=== PATIENT | male | born 1975 ===

== ENCOUNTER 2018-02-20 13:31 | Emergency (ER) | payer MEDICAID, SELFPAY ==
[2018-02-20 13:37] VITALS: BP 131/81; PULSE 97; RESP 16; TEMP 99.6; O2SAT 98
[2018-02-20] MEDS ORDERED: Tdap Vaccine 0.5 ml Vial (10-64 yrs) IM ONE (13:41)
[2018-02-20] MEDS ORDERED: Lidocaine 1% Inj (20ml) IJ ONE (13:41)
[2018-02-20] MEDS ORDERED: Lidocaine 1% MPF (30 ml) Inj ONE (13:51)
[2018-02-20] MEDS ORDERED: Povidone Iodine Topical 10% Sol ONE (13:51)
--- NOTE | 2018-02-20 13:52 | ED PDOC ---
Upper Extremity Pain/Injury Time Seen by Provider: 02/20/18 13:37 Chief Complaint (Nursing): Abnormal Skin Integrity Chief Complaint (Provider): Laceration to right hand History Per: Patient History/Exam Limitations: no limitations Onset/Duration Of Symptoms: Hrs (earlier today) Current Symptoms Are (Timing): Still Present Additional Complaint(s): 42 year old male presents to the ED complaining of accidentally cutting his right hand with a knife earlier today at home. Patient denies numbness and tingling. He offers no other complaints at this time, and arrived with the bleeding under control. Tetanus not up to date. PMD: none provided Past Medical History Reviewed: Historical Data, Nursing Documentation, Vital Signs Vital Signs: Last Vital Signs Temp 99.6 F 02/20/18 13:34 Pulse 97 H 02/20/18 13:34 Resp 16 02/20/18 13:34 BP 131/81 02/20/18 13:34 Pulse Ox 98 02/20/18 13:34 - Medical History PMH: No Chronic Diseases - Surgical History Surgical History: No Surg Hx - Family History Family History: States: Unknown Family Hx - Social History Alcohol: None Drugs: Denies - Immunization History Hx Tetanus Toxoid Vaccination: No - Allergies Allergies/Adverse Reactions: Allergies Allergy/AdvReac Type Severity Reaction Status Date / Time No Known Allergies Allergy Verified 02/20/18 13:34 Review of Systems ROS Statement: Except As Marked, All Systems Reviewed And Found Negative Skin: Positive for: Other (laceration on right hand) Neurological: Negative for: Numbness (or tingling) Physical Exam - Reviewed Nursing Documentation Reviewed: Yes Vital Signs Reviewed: Yes - Physical Exam Appears: Positive for: No Acute Distress Head Exam: Positive for: ATRAUMATIC, NORMOCEPHALIC Skin: Positive for: Normal Color, Warm, Dry Pulses-Radial (L): 2+ Pulses-Radial (R): 2+ Extremity: Positive for: Normal ROM (of dorsal right hand), Capillary Refill ( less than 2 seconds), Other (2cm c-shaped flap laceration on first mcp of right hand; no active bleeding) Neurologic/Psych: Positive for: Alert, Oriented (x3). Negative for: Motor/ Sensory Deficits - ECG O2 Sat by Pulse Oximetry: 98 (RA) Pulse Ox Interpretation: Normal Medical Decision Making Medical Decision Making: Initial Impression: hand laceration s/p knife injury Time: 13:41 Initial Plan: --Tetanus 0.5ml IM --Lidocaine 1% 3ml IJ Scribe Attestation: Documented by Miriam Moore, acting as a scribe for Rolf Matos PA-C. Provider Scribe Attestation: All medical entries made by the Scribe were at my direction and personally dictated by me. I have reviewed the chart and agree that the record accurately reflects my personal performance of the history, physical exam, medical decision making, and the department course for this patient. I have also personally directed, reviewed, and agree with the discharge instructions and disposition. Procedures - Laceration/Wound Repair Right Dorsal Hand Wound Length (cm): 2 Wound's Depth, Shape: flap (c-shaped) Wound Explored: clean Irrigated w/ Saline (ccs): 3 Anesthesia: 1% Lidocaine Wound Repaired With: Sutures Suture Size/Type: 5:0, proline Number of Sutures: 6 Wound Complexity: Simple Sterile Dressing Applied?: Yes Splint Applied?: No Sling Applied?: No Progress: Verbal consent was received prior to beginning. Patient tolerated procedure well. Patient told to follow up in 10 days for suture removal, or sooner if there are any complications. Disposition - Clinical Impression Clinical Impression: Hand laceration - Patient ED Disposition Is Patient to be Admitted: No - Disposition Referrals: [facility] [Outside] [facility] [Outside] Disposition: Routine/Home Disposition Time: 14:20 Condition: STABLE Additional Instructions: Suture removal in 10 days. Return to ED immediately if symptoms worsen. Instructions: Laceration Repair Forms: [employer] (Togolese) Print Language: JAPANESE
== END 2018-02-20 14:58 | disposition home or self-care (01) ==
LOC: H.ER 13:31
DX: S61.411A Laceration without foreign body of right hand, initial encounter (principal); W26.0XXA Contact with knife, initial encounter; Y92.000 Kitchen of unspecified non-institutional (private) residence as the place of occurrence of the external cause

== ENCOUNTER 2018-03-07 08:40 | Emergency (ER) | payer MEDICAID ==
[2018-03-07 08:47] VITALS: BP 131/73; PULSE 85; RESP 19; TEMP 99; O2SAT 96
--- NOTE | 2018-03-07 09:35 | ED PDOC ---
HPI: Wound Care - HPI Time Seen by Provider: 03/07/18 09:08 Chief Complaint (Nursing): Wound Check Chief Complaint (Provider): Wound Check History Per: Patient Exam Limitations: no limitations Current Symptoms Are (Timing): Better Additional Complaint(s): 42-year-old male presents to ED for suture removal of the right hand. Pt was here on February 20 for laceration of right hand. Sutures were placed. Denies any other complaints relating to hands. (-) pain, (-) fever, (-) swelling, (-) discharge, (-) difficulty moving fingers or using hand. Denies any other complaints at this time. PMD: No PMD. Past Medical History Reviewed: Historical Data, Nursing Documentation, Vital Signs Vital Signs: Last Vital Signs Temp 99.0 F 03/07/18 08:46 Pulse 85 03/07/18 08:46 Resp 19 03/07/18 08:46 BP 131/73 03/07/18 08:46 Pulse Ox 96 03/07/18 08:46 - Medical History PMH: No Chronic Diseases - Surgical History Surgical History: No Surg Hx - Family History Family History: States: Unknown Family Hx - Social History Alcohol: None Drugs: Denies - Immunization History Hx Tetanus Toxoid Vaccination: No - Home Medications Home Medications: Ambulatory Orders Medication Instructions Recorded No Known Home Med 03/07/18 - Allergies Allergies/Adverse Reactions: Allergies Allergy/AdvReac Type Severity Reaction Status Date / Time No Known Allergies Allergy Verified 03/07/18 08:59 Review of Systems ROS Statement: Except As Marked, All Systems Reviewed And Found Negative Constitutional: Negative for: Fever Musculoskeletal: Negative for: Hand Pain, Other (hand swelling, difficulty moving finers or using hand) Skin: Negative for: Other (discharge) Physical Exam - Reviewed Nursing Documentation Reviewed: Yes Vital Signs Reviewed: Yes - Physical Exam Appears: Positive for: No Acute Distress Extremity: Positive for: Normal ROM ((+) Full ROM of fingers), Other (Dorsum aspect of the right hand: (+) 7 cm healed laceration, (+) 7 sutures present, (+ ) Neurovascularly intact) Neurologic/Psych: Positive for: Alert, Oriented (x 3) - ECG O2 Sat by Pulse Oximetry: 96 (RA) Pulse Ox Interpretation: Normal Medical Decision Making Medical Decision Making: Time: 09:25 Suture Removal Procedure performed by ED Provider Dr. Aquino. 7 sutures nonabsorptive removed in acustomary fashion. Pt tolerated well. No complications Upon provider evaluation patient is medically stable, and requires no further treatment in the ED at this time. Patient will be discharged. Counseling was provided and all questions were answered regarding diagnosis. There is agreement to discharge plan. Return if symptoms persist or worsen. Scribe Attestation: Documented by Felipe Mcgovern, acting as a scribe for Lashonda Aquino MD. Provider Scribe Attestation: All medical record entries made by the Scribe were at my direction and personally dictated by me. I have reviewed the chart and agree that the record accurately reflects my personal performance of the history, physical exam, medical decision making, and the department course for this patient. I have also personally directed, reviewed, and agree with the discharge instructions and disposition. Disposition - Clinical Impression Clinical Impression: Encounter for removal of sutures - Patient ED Disposition Is Patient to be Admitted: No - Disposition Referrals: [facility] [Outside] Disposition: Routine/Home Disposition Time: 09:31 Condition: GOOD Additional Instructions: Follow up with your PCP as needed. Instructions: Stitches Removal Print Language: NEPALI
== END 2018-03-07 09:57 | disposition home or self-care (01) ==
LOC: H.ER 08:40
DX: Z48.02 Encounter for removal of sutures (principal)

== ENCOUNTER 2019-01-10 13:31 | Emergency (ER) | payer SELFPAY ==
[2019-01-10 13:35] VITALS: RESP 20; TEMP 98.4
--- NOTE | 2019-01-10 13:57 | ED PDOC ---
HPI: Psych/Substance Abuse Time Seen by Provider: 01/10/19 13:36 Chief Complaint (Nursing): Alcohol Ingestion Chief Complaint (Provider): Alcohol Ingestion History Per: Patient Additional Complaint(s): 43 y/o male brought in by EMS presents to the ED complaining of Intoxication. Patient was found outside a pizzeria with a steady gait. Patient admits he was drinking and appears intoxicated in the ER. Police presents no report of fall or trauma. Further injuries unattainable and no report of medical history at this time. Patient was admitted in 2018 for hand laceration repair. Past Medical History Reviewed: Historical Data, Nursing Documentation, Vital Signs, Unable To Obtain Vital Signs: Last Vital Signs Temp 98.4 F 01/10/19 13:32 Pulse 90 01/10/19 13:32 Resp 20 01/10/19 13:32 BP 123/92 H 01/10/19 13:32 Pulse Ox 98 01/10/19 13:32 Primary Care Provider: FAMILY PROVIDER,NO - Family History Family History: States: Unknown Family Hx - Immunization History Hx Tetanus Toxoid Vaccination: No - Home Medications Home Medications: Ambulatory Orders Medication Instructions Recorded No Known Home Med 03/07/18 - Allergies Allergies/Adverse Reactions: Allergies Allergy/AdvReac Type Severity Reaction Status Date / Time No Known Allergies Allergy Verified 01/10/19 13:32 Review of Systems ROS Statement: Except As Marked, All Systems Reviewed And Found Negative Physical Exam - Reviewed Nursing Documentation Reviewed: Yes Vital Signs Reviewed: Yes - Physical Exam Appears: Positive for: No Acute Distress. Negative for: Non-toxic (Alcohol on breath.) Head Exam: Positive for: ATRAUMATIC, NORMAL INSPECTION, NORMOCEPHALIC Skin: Positive for: Normal Color, Warm, Dry Eye Exam: Positive for: EOMI, Normal appearance, PERRL ENT: Positive for: Normal ENT Inspection Neck: Positive for: Normal, Painless ROM, Supple Cardiovascular/Chest: Positive for: Regular Rate, Rhythm. Negative for: Murmur Respiratory: Positive for: Normal Breath Sounds. Negative for: Wheezing Gastrointestinal/Abdominal: Positive for: Normal Exam, Soft. Negative for: Te nderness Back: Positive for: Normal Inspection. Negative for: L CVA Tenderness, R CVA Tenderness Extremity: Positive for: Normal ROM Neurological/Psych: Positive for: Awake, Alert, Normal Tone, Symmetric/Intact Strength (Equal strength but intoxicated.), Gait. Negative for: Motor/Sensory Deficits - Laboratory Results Result Diagrams: 01/10/19 14:10 01/10/19 14:10 - ECG O2 Sat by Pulse Oximetry: 98 Medical Decision Making Medical Decision Making: Time:1340 Initial Impression: Intoxication. Initial Plan: -EKG -Alcohol serum -CMP -Lipase -CBC -Glucose, POC routine -satellite project site monitor -Glucose, Blood, POC -Urinalysis 1500 Labs reviewed, significant for blood alcohol level of 402 [id number] patient awake and ambulating requesting to go home, given high etoh level will continue to monitor for clinical signs of intoxication or withdrawal 1815 patient remains awake and alert, gait stable, clear speech in afghan, does not want to stay in ED, no signs etoh withdrawal, no psychiatric complaints, DC from ED, offered referral to detox and refused. Scribe Attestation: Documented by Marii Toscano, acting as a scribe for Jorge Woodard. Provider Scribe Attestation: All medical record entries made by the Scribe were at my direction and personally dictated by me. I have reviewed the chart and agree that the record accurately reflects my personal performance of the history, physical exam, medical decision making, and the department course for this patient. I have also personally directed, reviewed, and agree with the discharge instructions and disposition. Disposition - Clinical Impression Clinical Impression: Alcohol dependence - Patient ED Disposition Is Patient to be Admitted: No Counseled Patient/Family Regarding: Studies Performed, Diagnosis, Need For Followup - Disposition Referrals: [facility] [Outside] Disposition Time: 18:20 Condition: STABLE Additional Instructions: Return to ER for any concern. You were offered detox but declined further care. Instructions: Alcohol Use - When Is Drinking a Problem?, Alcohol Abuse and Alcoholism (DC) Forms: [employer] (Comoran) Print Language: TUNISIAN
[2019-01-10 14:24] LABS: BASO # 0.1 K/uL (0.0-0.2); BASO % 0.6 % (0.0-2.0); EOS % 0.6 % (0.0-4.0); HEMOGLOBIN 16.6 g/dL (12.0-18.0); LYMPH # 2.7 K/uL (1.0-4.3); LYMPH % 32.9 % (20.0-40.0); MEAN CELL VOLUME 93.3 fl (80.0-94.0); MEAN CORPUSCULAR HEMOGLOBIN 31.6 pg (27.0-31.0); MEAN CORPUSCULAR HGB CONC 33.8 g/dL (33.0-37.0); MEAN PLATELET VOLUME 8.4 fl (7.2-11.7); MONO # 0.4 K/uL (0.0-0.8); MONO % 5.3 % (0.0-10.0); NEUT # 5.1 K/uL (1.8-7.0); NEUT % 60.6 % (50.0-75.0); NRBC % 0.2 % (0.0-0.0); RBC 5.26 Mil/uL (4.40-5.90); RED CELL DISTRIBUTION WIDTH 14.4 % (11.5-14.5); WHITE BLOOD COUNT 8.3 K/uL (4.8-10.8)
[2019-01-10 15:01] LABS: ALB/GLOB RATIO 1.2 (1.0-2.1); ALBUMIN 4.3 g/dL (3.5-5.0); ALT/SGPT 43 U/L (21-72); AST/SGOT 43 U/L (17-59); BLOOD UREA NITROGEN 8 mg/dl (9-20); CALCIUM 8.1 mg/dL (8.4-10.2); GFR NON-AFRICAN AMERICAN > 60; LIPASE 126 U/L (23-300)
--- NOTE | 2019-01-10 16:01 | CARD ---
APPROVED REPORT Date of service: 01/10/2019 EKG Measurement Heart [id number] <Conclusion> Normal sinus rhythm Normal ECG
[2019-01-10 18:36] VITALS: BP 124/82; PULSE 98
[2019-01-10 18:46] VITALS: O2SAT 98
== END 2019-01-10 18:20 | disposition home or self-care (01) ==
LOC: H.ER 13:31
DX: F10.20 Alcohol dependence, uncomplicated (principal); Y90.8 Blood alcohol level of 240 mg/100 ml or more
CPT/HCPCS: 80053; 82948; 83690; 85025; 93005; 99282; G0480